=== PATIENT | female | born 1995 | race Two or more races ===

== ENCOUNTER 2023-07-13 08:06 | Outpatient (CLI) | payer OTHER | END 2023-07-13 23:59 | disposition critical access hospital (66) | LOC: EMS 08:06 | DX: M54.2 Cervicalgia (principal); M25.511 Pain in right shoulder; V53.5XXA Driver of pick-up truck or van injured in collision with car, pick-up truck or van in traffic accident, initial encounter; Y92.413 State road as the place of occurrence of the external cause | CPT/HCPCS: A0425 ×2 ==

== ENCOUNTER 2023-07-13 08:29 | Emergency (ER) | payer OTHER ==
[2023-07-13] MEDS ORDERED: ACETAMINOPHEN 325 MG TABLET PO STA (08:48)
[2023-07-13] MEDS ORDERED: IBUPROFEN 600 MG TABLET PO STA (08:48)
[2023-07-13 08:49] VITALS: O2SAT 100
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
[2023-07-13 11:00] VITALS: BP 106/73
== END 2023-07-13 10:53 | disposition home or self-care (01) ==
LOC: ED 08:29
DX: S16.1XXA Strain of muscle, fascia and tendon at neck level, initial encounter (principal); S20.211A Contusion of right front wall of thorax, initial encounter; V89.2XXA Person injured in unspecified motor-vehicle accident, traffic, initial encounter; Y92.410 Unspecified street and highway as the place of occurrence of the external cause
CPT/HCPCS: 71250; 72125; 99284; A9270